=== PATIENT | male | born 1985 | race African-American/Black ===

== ENCOUNTER 2016-12-16 03:44 | Emergency (ER) | payer MEDICARE ==
--- NOTE | 2016-12-20 08:26 | ER ---
ADMIT: 12/16/2016 RM/LOC: ER [facility] MR#: [id number] [address] [place], [place] [id number] WILNERMIKE WILLS LOWELL [address] [place] [address] Emergency Room Report SEX: M AGE: 31 : 1985 DATE: 12/16/2016 CHIEF COMPLAINT: Possible seizures. HISTORY OF PRESENT ILLNESS: The patient is a 31-year-old male with history of PTSD and anxiety, panic attacks and bipolar, who presents to the ER by EMS for possible seizures. He has had a history of possible seizures in the past and has actually had a few episodes in the past month and was seen at a couple of different ERs for what sounds like had pretty extensive workups. From my understanding, those workups were normal. He is traveling from [place] back to [place] and was at a truck stop when he had some episodes, where he felt like he was shaking and needed to be checked out. He did not lose consciousness and other than some sore muscles, has no pain complaints, no difficulty breathing. No nausea. No vomiting. No fevers. He was just seen roughly 36 hours ago at a emergency department in [place], [place]. PAST MEDICAL HISTORY: As noted above. MEDICATIONS: None at this time. ALLERGIES: NONE. PHYSICAL EXAMINATION: VITAL SIGNS: Blood pressure 142/88, pulse 70, respirations 18, temp 97.5, sats 96%. GENERAL: The patient is alert, oriented, no apparent distress. HEENT: Head is atraumatic. Pupils are equal, round, and reactive to light. Extraocular muscles are intact. NECK: Supple. HEART: Regular rate and rhythm. LUNGS: Clear to auscultation. ABDOMEN: Soft. SKIN: Warm and dry. No skin rashes or lesions. NEURO: Entirely normal. LABORATORY DATA: CMP is unremarkable other than a slightly low potassium at 3.1, lactic acid is 0.9. EMERGENCY DEPARTMENT COURSE: The patient presented. He was not postictal and his history did not really sound like he had seizures. I did get a report from EMS that he did not have any seizure activity that they witnessed and had noted postictal episode either. I did get a report from his visit just ADMIT: 12/16/2016 RM/LOC: ER [facility] MR#: [id number] [address] [place], [place] [id number] MIKE DARBY LOWELL [address] [place] [id number] Emergency Room Report SEX: M AGE: 31 : 1985 recently at [place], [place], where he had a chest x-ray, EKG, urinalysis and blood work done. I reviewed those results and they were unremarkable. The patient was stable and had no further issues while here. I think it is likely patient is having some problems with his PTSD and anxiety. The patient is told that when he gets back to [place] he should establish care with another primary care physician. The patient is discharged to home in stable condition. DIAGNOSIS: Anxiety. He is also told that if he has any problems en route, he can go into a . Martin Lock MD/ katlin JOB #: [id number] CC: Martin Lock MD, Attending Physician UNKNOWN, Family Physician
== END 2016-12-16 05:30 | disposition home or self-care (01) ==
LOC: ER 03:44
DX: F41.9 Anxiety disorder, unspecified (principal); Z79.899 Other long term (current) drug therapy